=== PATIENT | female | born 1940 | race Caucasian/White ===

== ENCOUNTER → 2017-12-12 | Outpatient (CLI) | payer MEDICARE, OTHER ==
[~2017-12-12] MED LIST: AMOX1TAB9 PO; ASPI-1471 PO; CALC-649 PO; DOCU-416 PO; ESOM40CA42 PO; FERR325T24 PO; FURO-45 PO; GABA-551 PO; LEVI SUBQ; OXYC-854 PO; SIMV-49 PO; VITA1CAP46 PO
--- NOTE | 2017-12-13 08:38 | RADIOLOGY IMAGING REPORT ---
[place] [facility] [place] NAME: DENZEL NOLASCO : [id number] MR: [id number] V: [id number] EXAM DATE: ORDERING PHYSICIAN: BRYON RODRIGUEZ TECHNOLOGIST: Sandra Irene PROCEDURE:BILATERAL DIGITAL SCREENING MAMMOGRAM WITH CAD ASSISTED INTERPRETATION & 3D TOMOSYNTHESIS COMPARISON:Prior mammograms 12/11/16, 12/09/15, 08/09/14, 08/07/13, 08/06/12, 08/06/11. INDICATIONS:SCREENING FINDINGS: Small amount of fibroglandular tissue is seen throughout the breasts. There is a focal asymmetry seen in the lateral portion middle 1/3 on the Right CC view for which Spot compression view is recommended. The parenchymal pattern throughout the Left breast has remained stable. DIAGNOSTIC CATEGORY 0--INCOMPLETE: NEED ADDITIONAL IMAGING EVALUATION. RECOMMENDATIONS: ADDITIONAL MAMMOGRAPHIC VIEWS REQUIRED: RIGHT BREAST. IMPRESSION: BIRADS 0: Incomplete. Additional view of the Right breast recommended. Dictated by: Estefani Lawrence M.D. on 12/12/2017 at 15:14 Transcribed by: JOSIE on 12/12/2017 at 15:26 Approved by: Estefani Lawrence M.D. on 12/13/2017 at 8:37 [facility]
== END ==
LOC: MAMO 01:26
PROVIDERS: ATTEND Nurse Practitioner Family
DX: Z12.31 Encounter for screening mammogram for malignant neoplasm of breast (principal); R92.8 Other abnormal and inconclusive findings on diagnostic imaging of breast
CPT/HCPCS: 77063; 77067

== ENCOUNTER → 2018-01-01 | Outpatient (CLI) | payer MEDICARE ==
--- NOTE | 2018-01-01 15:25 | RADIOLOGY IMAGING REPORT ---
FACILITY: [facility] [place] PATIENT NAME: DENZEL NOLASCO : [id number] MR: [id number] V: [id number] EXAM DATE: [id number] ORDERING PHYSICIAN: BRYON RODRIGUEZ TECHNOLOGIST: Sandra Irene PROCEDURE:RIGHT DIGITAL DIAGNOSTIC MAMMOGRAM WITH CAD ASSISTED INTERPRETATION & 3D TOMOSYNTHESIS COMPARISON:Prior mammogram 12/12/2017. INDICATIONS:Focal asymmetry Right breast. FINDINGS: Right breast mediolateral view, and Right breast compression view CC view were obtained. The previously see focal asymmetry does not persist on Today's images. DIAGNOSTIC CATEGORY 2--BENIGN FINDING. RECOMMENDATIONS: ROUTINE MAMMOGRAM AND CLINICAL EVALUATION. IMPRESSION: BIRADS 2: Benign finding. No mammographic evidence for malignancy. Previously seen focal asymmetry represented overlapping fibroglandular tissue elements. Dictated by: Aldo Jauregui M.D. on 01/01/2018 at 12:25 Transcribed by: JOSIE on 01/01/2018 at 13:44 Approved by: Aldo Jauregui M.D. on 01/01/2018 at 15:22 [facility]
== END ==
LOC: MAMO 01:12
PROVIDERS: ATTEND Nurse Practitioner Family
DX: R92.8 Other abnormal and inconclusive findings on diagnostic imaging of breast (principal)
CPT/HCPCS: 77061; 77065

== ENCOUNTER → 2018-01-01 | Outpatient (CLI) | payer MEDICARE ==
[2018-01-01 11:03] LABS: PLATELET COUNT, AUTOMATED 307 K/uL (150-450)
== END ==
LOC: LAB 09:20
PROVIDERS: ATTEND Internal Medicine Nephrology
DX: N25.89 Other disorders resulting from impaired renal tubular function (principal); N18.3 Chronic kidney disease, stage 3 (moderate); R80.1 Persistent proteinuria, unspecified
CPT/HCPCS: 36415; 82040; 82310; 82374; 82435; 82565; 82570; 82947; 83970; 84100; 84132; 84156; 84295; 84520; 85025

== ENCOUNTER → 2018-07-04 | Outpatient (CLI) | payer MEDICARE, OTHER ==
[2018-07-04 09:44] LABS: PLATELET COUNT, AUTOMATED 430 K/uL (150-450)
== END ==
LOC: LAB 09:12
PROVIDERS: ATTEND Internal Medicine Nephrology
DX: E11.22 Type 2 diabetes mellitus with diabetic chronic kidney disease (principal); N25.81 Secondary hyperparathyroidism of renal origin; N18.3 Chronic kidney disease, stage 3 (moderate); Z79.4 Long term (current) use of insulin; R80.9 Proteinuria, unspecified
CPT/HCPCS: 36415; 82040; 82310; 82374; 82435; 82565; 82947; 83970; 84100; 84132; 84156; 84295; 84520; 85025

== ENCOUNTER → 2018-12-15 | Outpatient (CLI) | payer MEDICARE, OTHER ==
--- NOTE | 2018-12-15 17:32 | RADIOLOGY IMAGING REPORT ---
FACILITY: [facility] PATIENT NAME: DENZEL NOLASCO : [id number] MR: [id number] V: [id number] EXAM DATE: ORDERING PHYSICIAN: BRYON RODRIGUEZ TECHNOLOGIST: Fern Serna PROCEDURE: BILATERAL DIGITAL SCREENING MAMMOGRAM WITH CAD ASSISTED INTERPRETATION & 3D TOMOSYNTHESIS REASON FOR STUDY: Screening. FAMILY HISTORY OF BREAST CANCER: Mother, sister and 5 maternal aunts. BREAST PROCEDURES/TREATMENTS: None. COMPARISON: 01/01/18, 12/12/17, 12/11/16, 12/09/15, 08/09/14, 08/07/13. VIEWS OBTAINED: Bilateral 2D & 3D full field CC & MLO projections. BREAST DENSITY: There are scattered areas of fibroglandular density throughout the breasts. MAMMOGRAM FINDINGS: The parenchymal pattern has remained stable allowing for difference in mammographic technique & patient positioning. IMPRESSION: BIRADS 1: Negative. DIAGNOSTIC CATEGORY 1--NEGATIVE. RECOMMENDATIONS: ROUTINE MAMMOGRAM AND CLINICAL EVALUATION. Dictated by: Estefani Lawrence M.D. on 12/15/2018 at 15:13 Transcribed by: JOSIE on 12/15/2018 at 15:51 Approved by: Estefani Lawrence M.D. on 12/15/2018 at 17:27 [facility]
== END ==
LOC: MAMO 03:52
PROVIDERS: ATTEND Nurse Practitioner Family
DX: Z12.31 Encounter for screening mammogram for malignant neoplasm of breast (principal)
CPT/HCPCS: 77063; 77067